=== PATIENT | female | born 1980 | race Caucasian/White ===

== ENCOUNTER → 2023-07-21 | Outpatient (CLI) | payer BC | LOC: M PLAIMG 14:26 | PROVIDERS: ATTEND Physician Assistant | DX: R60.0 Localized edema (principal) ==

== ENCOUNTER → 2025-02-07 | Outpatient (CLI) | payer BC, OTHER | LOC: M EKG 07:58 | PROVIDERS: ATTEND Physician Assistant | DX: R42 Dizziness and giddiness (principal); I48.0 Paroxysmal atrial fibrillation ==